=== PATIENT | female | born 1945 | race Caucasian/White ===

== ENCOUNTER 2017-03-17 17:08 | Emergency (ER) | payer MEDICARE ==
[~2017-03-17] VITALS: Ht 170.1 cm; Wt 127.0 kg
[~2017-03-17 17:08] MED LIST: AVPAK AZITHROM250 M1 PO; BYETTA5MCG SQ; CALCITRIOL0.5 MCG PO; CIPRO500 MG PO; CLARITIN10 MG PO; COZAAR100 MG PO; ENALAPRIL10 MG PO; GLIPIZIDE5 MG PO; LANTUS SOLOS100 U/M1 SC; LANTUS100 U/ML SQ; LOMOTIL 0.025 M1 TAB PO; LOPRESSOR100 MG PO; MAGNESIUM500 MG PO; MEDROL DOSEPAK4 MG PO; NEURONTIN300 MG PO; NEXIUM40 MG PO; NORVASC5 MG PO; PRAVACHOL40 MG PO; PREDNICOT20 MG PO; Percocet 325 MG1 TAB PO; Rocaltrol0.25 MCG PO; Synthroid,Levo50 MCG PO; VIT D PO; VOLTAREN50 M1 PO; ZITHROMAX Z PA250 MG PO; ZYRTEC10 MG PO; Zofran4 MG PO
== END 2017-03-17 18:43 | disposition home or self-care (01) ==
LOC: ED 17:08
DX: S20.20XA Contusion of thorax, unspecified, initial encounter (principal); Z88.8 Allergy status to other drugs, medicaments and biological substances; Z79.899 Other long term (current) drug therapy; W01.0XXA Fall on same level from slipping, tripping and stumbling without subsequent striking against object, initial encounter; Y93.89 Activity, other specified; Y92.89 Other specified places as the place of occurrence of the external cause; Y99.8 Other external cause status

== ENCOUNTER → 2017-03-24 | Outpatient (CLI) | payer MEDICARE | END | disposition home or self-care (01) | LOC: ORTHO 00:31 | DX: M17.12 Unilateral primary osteoarthritis, left knee (principal); G89.29 Other chronic pain ==

== ENCOUNTER → 2017-04-15 | Outpatient (CLI) | payer MEDICARE | END | disposition home or self-care (01) | LOC: ORTHO 02:03 | DX: M17.11 Unilateral primary osteoarthritis, right knee (principal) ==

== ENCOUNTER 2017-04-27 19:04 | Emergency (ER) | payer MEDICARE ==
[~2017-04-27] VITALS: Ht 170.1 cm; Wt 127.0 kg
[2017-04-27 19:33] LABS: BASO # 0.1 10*3/uL (0.0-0.1); BASO % 0.6 % (0.0-1.0); EOS # 0.2 10*3/uL (0.0-0.4); EOS % 1.8 % (1.0-4.0); HEMATOCRIT 43.8 % (37.0-47.0); HEMOGLOBIN 13.6 g/dl (12.0-16.0); LYMPH # 2.7 10*3/uL (1.3-4.4); LYMPH % 22.7 % (27.0-41.0); MEAN CELL VOLUME 85.7 fl (81.0-99.0); MEAN CORPUSCULAR HGB 26.6 pg (27.0-31.0); MEAN CORPUSCULAR HGB CONC 31.1 g/dl (33.0-37.0); MEAN PLATELET VOLUME 9.8 fl (9.6-12.3); MONO # 0.7 10*3/uL (0.1-1.0); MONO % 5.8 % (3.0-9.0); NEUT # 8.1 10*3/uL (2.3-7.9); NEUT % 68.8 % (47.0-73.0); PLATELET COUNT AUTOMATED 174 10*3/uL (130-400); RED BLOOD COUNT 5.11 10*6/uL (4.10-5.10); RED CELL DISTRI WIDTH 13.4 % (0-14.5); WHITE BLOOD COUNT 11.7 10*3/uL (4.8-10.8)
[2017-04-27 19:43] LABS: INTERNATIONAL NORM RATIO 0.9 (2.0-3.5)
[2017-04-27 19:50] LABS: ALBUMIN 3.5 gm/dl (3.1-4.5); BILIRUBIN, TOTAL 0.4 mg/dl (0.2-1.0); TOTAL PROTEIN 6.9 gm/dL (6.4-8.2)
[2017-04-27 19:53] LABS: TROPONIN I 6.53 ng/ml (<0.045)
== END 2017-04-28 00:51 | disposition short-term general hospital (02) ==
LOC: ED 19:04
PROVIDERS: Emergency Medicine Emergency Medical Services
DX: I21.4 Non-ST elevation (NSTEMI) myocardial infarction (principal); I12.9 Hypertensive chronic kidney disease with stage 1 through stage 4 chronic kidney disease, or unspecified chronic kidney disease; N18.3 Chronic kidney disease, stage 3 (moderate); K21.9 Gastro-esophageal reflux disease without esophagitis; E03.9 Hypothyroidism, unspecified; E11.9 Type 2 diabetes mellitus without complications; F12.10 Cannabis abuse, uncomplicated; Z87.891 Personal history of nicotine dependence; E78.5 Hyperlipidemia, unspecified; Z88.6 Allergy status to analgesic agent; I25.2 Old myocardial infarction; Z88.8 Allergy status to other drugs, medicaments and biological substances; Z79.4 Long term (current) use of insulin; Z79.899 Other long term (current) drug therapy

== ENCOUNTER 2017-05-09 00:02 | Emergency (ER) | payer MEDICARE ==
[~2017-05-09] VITALS: Ht 162.5 cm; Wt 99.8 kg
[2017-05-09 00:29] LABS: BASO # 0.1 10*3/uL (0.0-0.1); BASO % 0.4 % (0.0-1.0); EOS # 0.1 10*3/uL (0.0-0.4); EOS % 0.4 % (1.0-4.0); HEMATOCRIT 38.5 % (37.0-47.0); HEMOGLOBIN 12.1 g/dl (12.0-16.0); IG # 0.1 10*3/uL (0.0-0.1); LYMPH # 1.2 10*3/uL (1.3-4.4); LYMPH % 8.5 % (27.0-41.0); MEAN CELL VOLUME 85.2 fl (81.0-99.0); MEAN CORPUSCULAR HGB 26.8 pg (27.0-31.0); MEAN CORPUSCULAR HGB CONC 31.4 g/dl (33.0-37.0); MEAN PLATELET VOLUME 10.2 fl (9.6-12.3); MONO # 0.9 10*3/uL (0.1-1.0); MONO % 6.1 % (3.0-9.0); NEUT # 11.8 10*3/uL (2.3-7.9); NEUT % 84.2 % (47.0-73.0); PLATELET COUNT AUTOMATED 174 10*3/uL (130-400); RED BLOOD COUNT 4.52 10*6/uL (4.10-5.10); RED CELL DISTRI WIDTH 13.5 % (0-14.5)
[2017-05-09 00:38] LABS: PROTHROMBIN TIME 10.8 SECONDS (9.0-12.4)
[2017-05-09 00:45] LABS: ALBUMIN 3.3 gm/dl (3.1-4.5); BILIRUBIN, TOTAL 1.5 mg/dl (0.2-1.0); MAGNESIUM 1.9 mg/dL (1.5-2.1); POTASSIUM 4.2 mmol/L (3.5-5.1); TOTAL PROTEIN 6.8 gm/dL (6.4-8.2)
== END 2017-05-09 03:40 | disposition short-term general hospital (02) ==
LOC: ED 00:02
PROVIDERS: Emergency Medicine Emergency Medical Services
DX: I21.3 ST elevation (STEMI) myocardial infarction of unspecified site (principal); E11.22 Type 2 diabetes mellitus with diabetic chronic kidney disease; I12.9 Hypertensive chronic kidney disease with stage 1 through stage 4 chronic kidney disease, or unspecified chronic kidney disease; N18.3 Chronic kidney disease, stage 3 (moderate); K21.9 Gastro-esophageal reflux disease without esophagitis; I25.2 Old myocardial infarction; E78.5 Hyperlipidemia, unspecified; E03.9 Hypothyroidism, unspecified; F12.10 Cannabis abuse, uncomplicated; Z88.6 Allergy status to analgesic agent; Z88.8 Allergy status to other drugs, medicaments and biological substances; Z79.899 Other long term (current) drug therapy; Z79.4 Long term (current) use of insulin; E11.40 Type 2 diabetes mellitus with diabetic neuropathy, unspecified; Z87.891 Personal history of nicotine dependence

== ENCOUNTER → 2017-05-18 | Outpatient (CLI) | payer MEDICARE ==
[2017-05-18 11:49] LABS: BILIRUBIN NEGATIVE (NEGATIVE); BLOOD TRACE-INTACT (NEGATIVE); CLARITY SL CLOUDY (CLEAR); COLOR YELLOW (YELLOW); GLUCOSE NEGATIVE (NEGATIVE); KETONE NEGATIVE (NEGATIVE); LEUKO ESTERASE NEGATIVE (NEGATIVE); NITRITE NEGATIVE (NEGATIVE); PH 5.5 (5.0-9.0); PROTEIN NEGATIVE (NEGATIVE); SPECIFIC GRAVITY 1.015 (1.005-1.030); UROBILINOGEN 0.2 E.U./dl (0.2-1.0)
[2017-05-18 11:56] LABS: URINE TP/CRE RATIO 0.3 (<0.21)
[2017-05-18 11:59] LABS: BASO # 0.1 10*3/uL (0.0-0.1); BASO % 0.6 % (0.0-1.0); EOS # 0.3 10*3/uL (0.0-0.4); EOS % 3.4 % (1.0-4.0); HEMATOCRIT 37.7 % (37.0-47.0); HEMOGLOBIN 11.3 g/dl (12.0-16.0); IG # 0.1 10*3/uL (0.0-0.1); LYMPH # 1.8 10*3/uL (1.3-4.4); LYMPH % 17.9 % (27.0-41.0); MEAN CELL VOLUME 86.3 fl (81.0-99.0); MEAN CORPUSCULAR HGB 25.9 pg (27.0-31.0); MEAN PLATELET VOLUME 9.6 fl (9.6-12.3); MONO # 0.6 10*3/uL (0.1-1.0); MONO % 6.5 % (3.0-9.0); NEUT # 6.9 10*3/uL (2.3-7.9); NEUT % 70.6 % (47.0-73.0); PLATELET COUNT AUTOMATED 340 10*3/uL (130-400); RED BLOOD COUNT 4.37 10*6/uL (4.10-5.10); RED CELL DISTRI WIDTH 13.7 % (0-14.5); WHITE BLOOD COUNT 9.8 10*3/uL (4.8-10.8)
[2017-05-18 12:20] LABS: ALBUMIN 2.8 gm/dl (3.1-4.5); PHOSPHOROUS 3.5 mg/dL (2.5-4.9); POTASSIUM 5.1 mmol/L (3.5-5.1)
== END | disposition home or self-care (01) ==
LOC: LAB 11:18
PROVIDERS: Internal Medicine Nephrology
DX: N18.3 Chronic kidney disease, stage 3 (moderate) (principal); N25.81 Secondary hyperparathyroidism of renal origin; E55.9 Vitamin D deficiency, unspecified

== ENCOUNTER 2017-05-27 19:02 | Emergency (ER) | payer MEDICARE ==
[~2017-05-27] VITALS: Ht 170.1 cm; Wt 120.2 kg
[2017-05-27] MEDS ORDERED: LIPITOR40 MG PO (19:27)
[2017-05-27] MEDS ORDERED: WARFARIN SOD5 MG PO (19:28)
[2017-05-27] MEDS ORDERED: TOPROL XL25 MG PO (19:28)
[2017-05-27] MEDS ORDERED: BRILINTA90 M1 PO (19:28)
[2017-05-27] MEDS ORDERED: ASPIRIN ADULT L81 M1 PO (19:29)
== END 2017-05-27 19:49 | disposition home or self-care (01) ==
LOC: ED 19:02
DX: S51.012A Laceration without foreign body of left elbow, initial encounter (principal); E11.22 Type 2 diabetes mellitus with diabetic chronic kidney disease; I12.9 Hypertensive chronic kidney disease with stage 1 through stage 4 chronic kidney disease, or unspecified chronic kidney disease; N18.3 Chronic kidney disease, stage 3 (moderate); Z79.4 Long term (current) use of insulin; K21.9 Gastro-esophageal reflux disease without esophagitis; E78.5 Hyperlipidemia, unspecified; E03.9 Hypothyroidism, unspecified; F12.10 Cannabis abuse, uncomplicated; E11.40 Type 2 diabetes mellitus with diabetic neuropathy, unspecified; Z87.891 Personal history of nicotine dependence; Z88.8 Allergy status to other drugs, medicaments and biological substances; Z79.899 Other long term (current) drug therapy; Z79.82 Long term (current) use of aspirin; Z79.02 Long term (current) use of antithrombotics/antiplatelets; W22.8XXA Striking against or struck by other objects, initial encounter; Y93.89 Activity, other specified; Y92.810 Car as the place of occurrence of the external cause; Y99.8 Other external cause status

== ENCOUNTER 2017-06-02 14:35 | Inpatient (IN) | payer MEDICARE ==
[~2017-06-02] VITALS: Ht 170.1 cm; Wt 124.1 kg
--- NOTE | ~2017-06-02 | CON ---
[place], [place] REPORT OF CONSULTATION NAME[id number] UNIT #: [id number] ROOM: 519 DOCTOR: ESTHER LANEGABRIELE BIRTHDATE: [birth year] DOS: 06/03/2017 REQUESTING PHYSICIAN: Dr. Staples. REASON FOR CONSULTATION: Shortness of breath. ASSESSMENT: 1. Current presentation with shortness of breath for the past 3 weeks. 2. Recent PTCA stent placement with initiation of Brilinta. 3. Known history of atrial fibrillation/flutter. The patient currently on Coumadin. 4. Chronic renal failure, stage 3. 5. Hypertension. 6. Hyperlipidemia. 7. Diabetes. 8. Obesity with high probability of obstructive sleep apnea. 9. Hypothyroidism. 10. Elevated troponin in the phase of advanced renal failure. PLAN: 1. Cycle cardiac enzymes. 2. Stop Brilinta and initiate Plavix. 3. Continue current medical regimen. 4. Continue Coumadin for target INR between 2 and 3. 5. Elevated troponin pattern is not consistent with ischemia, most likely due to renal failure. 6. Early followup with Dr. Chan next week for consideration of KENN and cardioversion should shortness of breath continue. 7. Consider sleep study. 8. Exercise, weight loss. 9. We will arrange for cardiac rehab here at [facility]. 10. Pulmonary evaluation for possible home O2 with walking and O2 sat check. HISTORY OF PRESENT ILLNESS: The patient is a pleasant 71-year-old female well known to our group, has been following with Dr. Gonzalez. Apparently, she underwent recently a PTCA stent placement at [facility] about 3 weeks ago. The patient was started on Brilinta and few days following that, she started complaining of shortness of breath. The patient did call Dr. Gonzalez and he suggested switching her off Brilinta. From the cardiology point of view, the patient denies any chest pain, chest pressure, heaviness, or tightness. No jaw pain, no left arm pain, no back pain. The patient denies also any symptomatic palpitation, associated dizziness, lightheadedness or near syncope. Apparently, the patient was cardioverted at [facility]. No record available to me at this time. No fever, no chills, no night sweats. No cough. Maintain good appetite, no weight loss. No PND, orthopnea or pedal edema. PAST MEDICAL HISTORY: As detailed in my assessment. SOCIAL HISTORY: The patient denies any current tobacco, alcohol or illicit drug abuse. [place], [place] REPORT OF CONSULTATION NAME: NAFISA DUNN UNIT #: [id number] ROOM: [facility] DOCTOR: GABRIELE SANTANA MD BIRTHDATE: [birth year] FAMILY HISTORY: Not applicable in view of patient's age. CURRENT MEDICATIONS: Lopressor, Brilinta, calcitriol, Lipitor, aspirin, Protonix, Synthroid, Neurontin, Coumadin, Restoril, Dulcolax, [place], Tylenol. ALLERGIES: The patient is allergic to STATINS, LISINOPRIL, and PREDNISONE. REVIEW OF SYSTEMS: Currently, the patient denies any headache, diplopia or blurry vision. No fever, no chills, no night sweats. No abdominal pain, no bright blood per rectum, no tarry stools. The patient admits to joint pain, but no muscular pain. No anxiety, no depression. No polyuria, no polydipsia. No skin rash. Review of all other systems has been negative. PHYSICAL EXAMINATION: GENERAL: The patient is alert and oriented x 3, quite pleasant, patient completely flat in bed, does not appear in distress. Denies any ongoing complaint. VITAL SIGNS: Blood pressure 120/82, heart rate 80, respiratory rate of 20, temperature 97.5. HEENT: Extraocular muscles intact. Pupils equal, round, reactive to light. Conjunctivae: No pallor. Throat: No petechiae. NECK: Good carotid upstroke. Unable to appreciate any JVD. No lymphadenopathy, no thyromegaly. HEART: S1, S2 with faint holosystolic murmur left upper sternal border, distant heart sounds. CHEST AND BACK: No deformities. LUNGS: Clear to auscultation. Good air movement. No wheezing, rales. ABDOMEN: Morbidly obese, soft, nontender, present bowel sounds, no masses, no bruits. LOWER EXTREMITIES: There is no edema with faint distal pulses. NEUROLOGIC: Grossly nonfocal. SKIN: No significant rash. DIAGNOSTIC DATA: Electrocardiogram showing atrial fibrillation, heart rate of 87. 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 LABORATORY DATA: White count 7.4, hemoglobin 10.5, platelet count 182,000. Potassium 4.4, creatinine 2.5, BUN 46, GFR is 19, total bilirubin 0.6, alkaline phosphatase 43. Troponin 0.12, subsequent 0.12 followed by 0.119 and then 0.121. Total cholesterol 93, LDL 23, triglyceride 160, HDL 38. Normal thyroid function test. [place], [place] REPORT OF CONSULTATION NAME: ZAKIA DUNNCHRISTIAN oMnroy UNIT #: [id number] ROOM: [facility] DOCTOR: GABRIELE SANTANA MD BIRTHDATE: [birth year] GABRIELE SANTANA MD CM:CONSTR:REPORT OF CONSULTATION 0922 06/03/17 1009 interface
[~2017-06-02 14:35] MED LIST changes: +ASPIRIN ADULT L81 M1 PO; +BRILINTA90 M1 PO; +LIPITOR40 MG PO; +TOPROL XL25 MG PO; +WARFARIN SOD5 MG PO
[2017-06-02 15:00] VITALS: BP 127/77
[2017-06-02 16:07] LABS: BASO # 0.1 10*3/uL (0.0-0.1); BASO % 0.7 % (0.0-1.0); EOS # 0.4 10*3/uL (0.0-0.4); EOS % 4.8 % (1.0-4.0); HEMATOCRIT 38.8 % (37.0-47.0); HEMOGLOBIN 11.8 g/dl (12.0-16.0); LYMPH # 2.3 10*3/uL (1.3-4.4); MEAN CELL VOLUME 87.4 fl (81.0-99.0); MEAN CORPUSCULAR HGB 26.6 pg (27.0-31.0); MEAN CORPUSCULAR HGB CONC 30.4 g/dl (33.0-37.0); MEAN PLATELET VOLUME 9.6 fl (9.6-12.3); MONO # 0.5 10*3/uL (0.1-1.0); MONO % 5.5 % (3.0-9.0); NEUT # 5.1 10*3/uL (2.3-7.9); NEUT % 61.6 % (47.0-73.0); PLATELET COUNT AUTOMATED 225 10*3/uL (130-400); RED BLOOD COUNT 4.44 10*6/uL (4.10-5.10); RED CELL DISTRI WIDTH 14.7 % (0-14.5); WHITE BLOOD COUNT 8.3 10*3/uL (4.8-10.8)
[2017-06-02 16:15] LABS: INTERNATIONAL NORM RATIO 2.7 (2.0-3.5); PROTHROMBIN TIME 30.8 SECONDS (9.0-12.4)
[2017-06-02 16:23] LABS: ALBUMIN 3.5 gm/dl (3.1-4.5); BILIRUBIN, TOTAL 0.8 mg/dl (0.2-1.0); C-REACTIVE PROTEIN 0.37 MG/DL (0-0.3); CKMB 2.9 ng/ml (0.5-3.6); MAGNESIUM 2.2 mg/dL (1.5-2.1); POTASSIUM 4.3 mmol/L (3.5-5.1); TOTAL PROTEIN 6.9 gm/dL (6.4-8.2)
[2017-06-02 16:26] LABS: TROPONIN I 0.121 ng/ml (<0.045)
[2017-06-02 18:39] VITALS: BP 129/81
[2017-06-02] MEDS ORDERED: PERCOCET 5-3251 EACH PO (19:13)
[2017-06-02] MEDS ORDERED: LASIX20 MG PO (19:14)
[2017-06-02 20:00] VITALS: BP 124/72
[2017-06-03] VITALS: BP 109/61
[2017-06-03 04:24] LABS: BASO % 0.5 % (0.0-1.0); EOS # 0.4 10*3/uL (0.0-0.4); HEMATOCRIT 34.8 % (37.0-47.0); HEMOGLOBIN 10.5 g/dl (12.0-16.0); LYMPH # 2.3 10*3/uL (1.3-4.4); LYMPH % 31.2 % (27.0-41.0); MEAN CELL VOLUME 87.4 fl (81.0-99.0); MEAN CORPUSCULAR HGB 26.4 pg (27.0-31.0); MEAN CORPUSCULAR HGB CONC 30.2 g/dl (33.0-37.0); MEAN PLATELET VOLUME 9.6 fl (9.6-12.3); MONO # 0.6 10*3/uL (0.1-1.0); MONO % 7.9 % (3.0-9.0); NEUT # 4.1 10*3/uL (2.3-7.9); NEUT % 55.1 % (47.0-73.0); PLATELET COUNT AUTOMATED 182 10*3/uL (130-400); RED BLOOD COUNT 3.98 10*6/uL (4.10-5.10); RED CELL DISTRI WIDTH 14.6 % (0-14.5); WHITE BLOOD COUNT 7.4 10*3/uL (4.8-10.8)
[2017-06-03 04:53] LABS: ALBUMIN 2.9 gm/dl (3.1-4.5); BILIRUBIN, TOTAL 0.6 mg/dl (0.2-1.0); FREE T4 1.19 ng/dl (0.76-1.46); MAGNESIUM 2.2 mg/dL (1.5-2.1); PHOSPHOROUS 4.5 mg/dL (2.5-4.9); POTASSIUM 4.4 mmol/L (3.5-5.1); TOTAL PROTEIN 5.9 gm/dL (6.4-8.2)
[2017-06-03 04:58] LABS: THYROID STIM HORMONE (HS) 1.66 uIU/ml (0.358-4.75)
[2017-06-03 05:01] LABS: INTERNATIONAL NORM RATIO 2.7 (2.0-3.5); PROTHROMBIN TIME 30.1 SECONDS (9.0-12.4)
[2017-06-03 08:00] VITALS: BP 120/82
[2017-06-03 09:10] LABS: CKMB 2.4 ng/ml (0.5-3.6)
[2017-06-03] MEDS ORDERED: CLOPIDOGREL75 MG PO (10:51)
[2017-06-03 12:00] VITALS: BP 111/53
== END 2017-06-03 16:31 | disposition home or self-care (01) | DRG 280 ==
LOC: ED 14:35 → 5E 16:48 → EDHOLD 16:48 → 5E 17:39
PROVIDERS: Family Medicine; Internal Medicine Cardiovascular Disease; Nurse Practitioner Family
DX: I48.92 Unspecified atrial flutter (principal); N17.0 Acute kidney failure with tubular necrosis; I21.29 ST elevation (STEMI) myocardial infarction involving other sites; I22.8 Subsequent ST elevation (STEMI) myocardial infarction of other sites; N18.4 Chronic kidney disease, stage 4 (severe); Z68.41 Body mass index [BMI] 40.0-44.9, adult; I25.10 Atherosclerotic heart disease of native coronary artery without angina pectoris; E11.22 Type 2 diabetes mellitus with diabetic chronic kidney disease; K21.9 Gastro-esophageal reflux disease without esophagitis; E78.5 Hyperlipidemia, unspecified; I12.9 Hypertensive chronic kidney disease with stage 1 through stage 4 chronic kidney disease, or unspecified chronic kidney disease; E03.9 Hypothyroidism, unspecified; I48.91 Unspecified atrial fibrillation; D64.9 Anemia, unspecified; E11.65 Type 2 diabetes mellitus with hyperglycemia; E83.41 Hypermagnesemia; Z98.61 Coronary angioplasty status; Z90.5 Acquired absence of kidney; Z85.528 Personal history of other malignant neoplasm of kidney; Z87.891 Personal history of nicotine dependence; Z82.49 Family history of ischemic heart disease and other diseases of the circulatory system; Z83.3 Family history of diabetes mellitus; Z88.8 Allergy status to other drugs, medicaments and biological substances; Z84.1 Family history of disorders of kidney and ureter; Z79.82 Long term (current) use of aspirin; Z79.4 Long term (current) use of insulin; Z79.899 Other long term (current) drug therapy; Z79.01 Long term (current) use of anticoagulants; E66.01 Morbid (severe) obesity due to excess calories

== ENCOUNTER → 2017-07-29 | Outpatient (CLI) | payer MEDICARE ==
[~2017-07-29] MED LIST changes: +CLOPIDOGREL75 MG PO; +LASIX20 MG PO; +PERCOCET 5-3251 EACH PO
== END | disposition home or self-care (01) ==
LOC: RAD 10:56
DX: M47.896 Other spondylosis, lumbar region (principal); M48.061 Spinal stenosis, lumbar region without neurogenic claudication; M16.12 Unilateral primary osteoarthritis, left hip

== ENCOUNTER → 2017-09-26 | Outpatient (CLI) | payer MEDICARE ==
[2017-09-26 13:59] LABS: BILIRUBIN NEGATIVE (NEGATIVE); BLOOD 1+ (NEGATIVE); CLARITY CLEAR (CLEAR); COLOR YELLOW (YELLOW); GLUCOSE NEGATIVE (NEGATIVE); KETONE NEGATIVE (NEGATIVE); LEUKO ESTERASE NEGATIVE (NEGATIVE); NITRITE NEGATIVE (NEGATIVE); UROBILINOGEN 0.2 E.U./dl (0.2-1.0)
[2017-09-26 14:02] LABS: BASO % 0.6 % (0.0-1.0); EOS # 0.3 10*3/uL (0.0-0.4); EOS % 4.8 % (1.0-4.0); HEMATOCRIT 41.6 % (37.0-47.0); HEMOGLOBIN 12.5 g/dl (12.0-16.0); LYMPH # 2.1 10*3/uL (1.3-4.4); LYMPH % 29.5 % (27.0-41.0); MEAN CORPUSCULAR HGB 25.3 pg (27.0-31.0); MEAN PLATELET VOLUME 9.9 fl (9.6-12.3); MONO # 0.5 10*3/uL (0.1-1.0); MONO % 6.6 % (3.0-9.0); NEUT # 4.2 10*3/uL (2.3-7.9); NEUT % 58.2 % (47.0-73.0); PLATELET COUNT AUTOMATED 192 10*3/uL (130-400); RED BLOOD COUNT 4.95 10*6/uL (4.10-5.10); RED CELL DISTRI WIDTH 14.8 % (0-14.5); WHITE BLOOD COUNT 7.1 10*3/uL (4.8-10.8)
[2017-09-26 14:11] LABS: URINE CREATININE RANDOM 41.9 mg/dL
[2017-09-26 14:24] LABS: ALBUMIN 3.6 gm/dl (3.1-4.5); CREATININE 2.09 mg/dL (0.55-1.02); PHOSPHOROUS 3.4 mg/dL (2.5-4.9); POTASSIUM 4.5 mmol/L (3.5-5.1)
[2017-09-26 14:26] LABS: INTERNATIONAL NORM RATIO 1.8 (2.0-3.5)
== END | disposition home or self-care (01) ==
LOC: LAB 13:22
PROVIDERS: Internal Medicine Nephrology
DX: N18.3 Chronic kidney disease, stage 3 (moderate) (principal); N25.81 Secondary hyperparathyroidism of renal origin; E55.9 Vitamin D deficiency, unspecified; R79.1 Abnormal coagulation profile

== ENCOUNTER → 2018-01-10 | Outpatient (CLI) | payer MEDICARE ==
[2018-01-10 15:19] LABS: ALBUMIN 3.5 gm/dl (3.1-4.5); BASO # 0.1 10*3/uL (0.0-0.1); BASO % 0.7 % (0.0-1.0); CREATININE 2.03 mg/dL (0.55-1.02); EOS # 0.3 10*3/uL (0.0-0.4); FREE T4 1.27 ng/dl (0.76-1.46); HEMOGLOBIN 12.2 g/dl (12.0-16.0); LYMPH # 2.1 10*3/uL (1.3-4.4); LYMPH % 26.3 % (27.0-41.0); MEAN CELL VOLUME 84.4 fl (81.0-99.0); MEAN CORPUSCULAR HGB 25.7 pg (27.0-31.0); MEAN CORPUSCULAR HGB CONC 30.5 g/dl (33.0-37.0); MEAN PLATELET VOLUME 9.6 fl (9.6-12.3); MONO # 0.5 10*3/uL (0.1-1.0); MONO % 6.6 % (3.0-9.0); NEUT # 5.1 10*3/uL (2.3-7.9); PLATELET COUNT AUTOMATED 214 10*3/uL (130-400); POTASSIUM 4.4 mmol/L (3.5-5.1); RED BLOOD COUNT 4.74 10*6/uL (4.10-5.10); RED CELL DISTRI WIDTH 14.8 % (0-14.5); WHITE BLOOD COUNT 8.2 10*3/uL (4.8-10.8)
[2018-01-10 15:24] LABS: THYROID STIM HORMONE (HS) 2.64 uIU/ml (0.358-4.75)
== END | disposition home or self-care (01) ==
LOC: LAB 14:14
PROVIDERS: Internal Medicine
DX: E78.2 Mixed hyperlipidemia (principal); N18.3 Chronic kidney disease, stage 3 (moderate); E03.9 Hypothyroidism, unspecified; E11.42 Type 2 diabetes mellitus with diabetic polyneuropathy

== ENCOUNTER → 2018-03-23 | Outpatient (CLI) | payer MEDICARE ==
[~2018-03-23] MED LIST changes: -LASIX20 MG PO; +LASIX40 MG PO; -NEURONTIN300 MG PO; +NEURONTIN400 MG PO; -PERCOCET 5-3251 EACH PO; +PERCOCET 7.5-31 EACH PO
[2018-03-23 14:11] LABS: BASO # 0.1 10*3/uL (0.0-0.1); BASO % 0.9 % (0.0-1.0); EOS # 0.3 10*3/uL (0.0-0.4); EOS % 3.8 % (1.0-4.0); HEMATOCRIT 41.9 % (37.0-47.0); HEMOGLOBIN 12.3 g/dl (12.0-16.0); LYMPH # 2.2 10*3/uL (1.3-4.4); LYMPH % 28.1 % (27.0-41.0); MEAN CELL VOLUME 85.2 fl (81.0-99.0); MEAN CORPUSCULAR HGB CONC 29.4 g/dl (33.0-37.0); MEAN PLATELET VOLUME 9.1 fl (9.6-12.3); MONO # 0.6 10*3/uL (0.1-1.0); MONO % 7.3 % (3.0-9.0); NEUT # 4.6 10*3/uL (2.3-7.9); NEUT % 59.6 % (47.0-73.0); PLATELET COUNT AUTOMATED 200 10*3/uL (130-400); RED BLOOD COUNT 4.92 10*6/uL (4.10-5.10); RED CELL DISTRI WIDTH 14.7 % (0-14.5); WHITE BLOOD COUNT 7.7 10*3/uL (4.8-10.8)
[2018-03-23 14:14] LABS: BILIRUBIN NEGATIVE (NEGATIVE); BLOOD TRACE-LYSED (NEGATIVE); CLARITY CLEAR (CLEAR); COLOR YELLOW (YELLOW); GLUCOSE NEGATIVE (NEGATIVE); KETONE NEGATIVE (NEGATIVE); LEUKO ESTERASE NEGATIVE (NEGATIVE); NITRITE NEGATIVE (NEGATIVE); PH 5.5 (5.0-9.0); UROBILINOGEN 0.2 E.U./dl (0.2-1.0)
[2018-03-23 14:33] LABS: URINE CREATININE RANDOM 41.6 mg/dL
[2018-03-23 14:34] LABS: ALBUMIN 3.6 gm/dl (3.1-4.5); CREATININE 2.48 mg/dL (0.55-1.02); PHOSPHOROUS 3.4 mg/dL (2.5-4.9); POTASSIUM 4.4 mmol/L (3.5-5.1)
[2018-03-23 15:13] LABS: VITAMIN D, 25-HYDROXY 35.8 ng/mL (30-100)
[2018-03-23 15:14] LABS: PTH INTACT 139.9 pg/mL (14.0-72.0)
== END | disposition home or self-care (01) ==
LOC: LAB 13:41
PROVIDERS: Internal Medicine Nephrology
DX: E11.22 Type 2 diabetes mellitus with diabetic chronic kidney disease (principal); N18.4 Chronic kidney disease, stage 4 (severe); N25.81 Secondary hyperparathyroidism of renal origin; E55.9 Vitamin D deficiency, unspecified

== ENCOUNTER → 2018-04-05 | Outpatient (CLI) | payer MEDICARE | END | disposition home or self-care (01) | LOC: CARD 04-04 14:00 | DX: I07.1 Rheumatic tricuspid insufficiency (principal); I25.10 Atherosclerotic heart disease of native coronary artery without angina pectoris ==

== ENCOUNTER → 2018-04-07 | Outpatient (CLI) | payer MEDICARE ==
[2018-04-07 12:21] LABS: ALBUMIN 3.6 gm/dl (3.1-4.5); CREATININE 2.48 mg/dL (0.55-1.02); PHOSPHOROUS 3.4 mg/dL (2.5-4.9); POTASSIUM 4.2 mmol/L (3.5-5.1)
== END | disposition home or self-care (01) ==
LOC: LAB 11:29
PROVIDERS: Internal Medicine Nephrology
DX: N18.4 Chronic kidney disease, stage 4 (severe) (principal)

== ENCOUNTER → 2018-05-12 | Day surgery (SDC) | payer MEDICARE ==
[~2018-05-12] VITALS: Ht 170.1 cm; Wt 123.8 kg
[~2018-05-12] MED LIST changes: +JANTOVEN5 MG PO
[2018-05-12 10:41] VITALS: BP 157/75; BP 157/95
[2018-05-12 12:09] VITALS: BP 105/46
[2018-05-12 12:25] VITALS: BP 141/59
[2018-05-12 12:45] VITALS: BP 149/76
== END | disposition home or self-care (01) ==
LOC: SDC 05-08 10:15
DX: I05.0 Rheumatic mitral stenosis (principal); Q24.4 Congenital subaortic stenosis; I50.9 Heart failure, unspecified; E11.40 Type 2 diabetes mellitus with diabetic neuropathy, unspecified; I25.2 Old myocardial infarction; K21.9 Gastro-esophageal reflux disease without esophagitis; E11.22 Type 2 diabetes mellitus with diabetic chronic kidney disease; I13.0 Hypertensive heart and chronic kidney disease with heart failure and stage 1 through stage 4 chronic kidney disease, or unspecified chronic kidney disease; N18.9 Chronic kidney disease, unspecified; Z82.49 Family history of ischemic heart disease and other diseases of the circulatory system; Z98.51 Tubal ligation status; Z83.3 Family history of diabetes mellitus; Z87.891 Personal history of nicotine dependence; R06.02 Shortness of breath

== ENCOUNTER → 2018-08-16 | Outpatient (CLI) | payer MEDICARE ==
[~2018-08-16] MED LIST changes: +CEFAZOLIN2 GM/10 ML IV; +COUMADIN2 M1 PO; +DOCUSATE SODIU100 M2 PO; +DULCOLAX10 M1 R; +FLEET ENEMA 13133 ML R; +GUAIFENESIN600 MG PO; +MILK OF MA400 MG/5 M PO; +ROCALTROL0.25 MC2 PO; +Zofran4 MG SL
[2018-08-16 17:23] LABS: BASO # 0.1 10*3/uL (0.0-0.1); EOS # 0.2 10*3/uL (0.0-0.4); EOS % 4.7 % (1.0-4.0); HEMATOCRIT 28.8 % (37.0-47.0); HEMOGLOBIN 8.5 g/dl (12.0-16.0); LYMPH # 1.4 10*3/uL (1.3-4.4); LYMPH % 26.5 % (27.0-41.0); MEAN CELL VOLUME 90.6 fl (81.0-99.0); MEAN CORPUSCULAR HGB 26.7 pg (27.0-31.0); MEAN CORPUSCULAR HGB CONC 29.5 g/dl (33.0-37.0); MEAN PLATELET VOLUME 9.6 fl (9.6-12.3); MONO # 0.4 10*3/uL (0.1-1.0); MONO % 8.2 % (3.0-9.0); NEUT # 3.1 10*3/uL (2.3-7.9); NEUT % 59.4 % (47.0-73.0); PLATELET COUNT AUTOMATED 159 10*3/uL (130-400); RED BLOOD COUNT 3.18 10*6/uL (4.10-5.10); RED CELL DISTRI WIDTH 15.2 % (0-14.5); WHITE BLOOD COUNT 5.1 10*3/uL (4.8-10.8)
[2018-08-16 17:39] LABS: CREATININE 3.61 mg/dL (0.55-1.02); POTASSIUM 4.7 mmol/L (3.5-5.1)
== END | disposition home or self-care (01) ==
LOC: LAB 16:53
PROVIDERS: Internal Medicine
DX: M86.9 Osteomyelitis, unspecified (principal)

== ENCOUNTER → 2018-10-03 | Outpatient (CLI) | payer MEDICARE ==
[2018-10-03 13:41] LABS: BASO # 0.1 10*3/uL (0.0-0.1); BASO % 0.8 % (0.0-1.0); EOS # 0.5 10*3/uL (0.0-0.4); EOS % 5.9 % (1.0-4.0); HEMATOCRIT 35.1 % (37.0-47.0); HEMOGLOBIN 9.9 g/dl (12.0-16.0); LYMPH # 1.7 10*3/uL (1.3-4.4); MEAN CELL VOLUME 87.8 fl (81.0-99.0); MEAN CORPUSCULAR HGB 24.8 pg (27.0-31.0); MEAN CORPUSCULAR HGB CONC 28.2 g/dl (33.0-37.0); MEAN PLATELET VOLUME 9.6 fl (9.6-12.3); MONO # 0.6 10*3/uL (0.1-1.0); MONO % 7.4 % (3.0-9.0); NEUT # 5.1 10*3/uL (2.3-7.9); NEUT % 64.6 % (47.0-73.0); PLATELET COUNT AUTOMATED 212 10*3/uL (130-400); RED CELL DISTRI WIDTH 14.8 % (0-14.5)
[2018-10-03 14:08] LABS: ALBUMIN 3.4 gm/dl (3.1-4.5); CREATININE 3.16 mg/dL (0.55-1.02); POTASSIUM 3.9 mmol/L (3.5-5.1); TOTAL PROTEIN 7.6 gm/dL (6.4-8.2)
== END | disposition home or self-care (01) ==
LOC: LAB 12:25
PROVIDERS: Internal Medicine
DX: T82.6XXA Infection and inflammatory reaction due to cardiac valve prosthesis, initial encounter (principal); R70.0 Elevated erythrocyte sedimentation rate; Y83.8 Other surgical procedures as the cause of abnormal reaction of the patient, or of later complication, without mention of misadventure at the time of the procedure; Y92.89 Other specified places as the place of occurrence of the external cause

== ENCOUNTER → 2018-12-29 | Outpatient (CLI) | payer MEDICARE ==
[~2018-12-29] MED LIST changes: +ASPIRIN CHEWABL81 M1 PO; +ATORVASTATIN CA80 M1 PO; +CEFAZOLIN1 GM IJ; +COLACE100 MG PO; +COUMADIN1 M1 PO; +COUMADIN5 M2 PO; +DOCUSATE SOD100 MG PO; +FEROSUL325 MG PO; +FUROSEMIDE40 MG PO; +LANTUS SOL100 UNIT/1 SQ; +LASIX20 MG PO; +LIPITOR10 MG PO; -LIPITOR40 MG PO; +METOPROLOL SUCC25 M2 PO; +MIRALAX POWDER17 G1 PO; +NEURONTIN300 MG PO; +OXYCODONE HCL10 M1 PO; +OXYCODONE HCL5 MG PO
[2018-12-29 12:45] LABS: BILIRUBIN NEGATIVE (NEGATIVE); BLOOD 1+ (NEGATIVE); CLARITY SL CLOUDY (CLEAR); COLOR YELLOW (YELLOW); GLUCOSE 1+ (NEGATIVE); KETONE NEGATIVE (NEGATIVE); LEUKO ESTERASE NEGATIVE (NEGATIVE); NITRITE NEGATIVE (NEGATIVE)
[2018-12-29 12:53] LABS: BASO % 0.7 % (0.0-1.0); EOS # 0.4 10*3/uL (0.0-0.4); EOS % 6.9 % (1.0-4.0); HEMATOCRIT 34.5 % (37.0-47.0); HEMOGLOBIN 9.7 g/dl (12.0-16.0); LYMPH % 17.4 % (27.0-41.0); MEAN CELL VOLUME 83.5 fl (81.0-99.0); MEAN CORPUSCULAR HGB 23.5 pg (27.0-31.0); MEAN CORPUSCULAR HGB CONC 28.1 g/dl (33.0-37.0); MEAN PLATELET VOLUME 9.6 fl (9.6-12.3); MONO # 0.4 10*3/uL (0.1-1.0); MONO % 6.8 % (3.0-9.0); NEUT # 3.9 10*3/uL (2.3-7.9); PLATELET COUNT AUTOMATED 224 10*3/uL (130-400); RED BLOOD COUNT 4.13 10*6/uL (4.10-5.10); RED CELL DISTRI WIDTH 15.3 % (0-14.5); WHITE BLOOD COUNT 5.8 10*3/uL (4.8-10.8)
[2018-12-29 12:56] LABS: INTERNATIONAL NORM RATIO 1.5 (2.0-3.5)
[2018-12-29 12:57] LABS: ALBUMIN 2.9 gm/dl (3.1-4.5); CREATININE 3.61 mg/dL (0.55-1.02); PHOSPHOROUS 5.6 mg/dL (2.5-4.9)
[2018-12-29 13:09] LABS: URINE CREATININE RANDOM 83.3 mg/dL
[2018-12-29 13:46] LABS: BACTERIA 3+
== END | disposition home or self-care (01) ==
LOC: LAB 11:51
PROVIDERS: Internal Medicine Nephrology
DX: E11.22 Type 2 diabetes mellitus with diabetic chronic kidney disease (principal); N18.4 Chronic kidney disease, stage 4 (severe); E55.9 Vitamin D deficiency, unspecified; N25.81 Secondary hyperparathyroidism of renal origin